=== PATIENT | male | born 1990 | race African-American/Black ===

== ENCOUNTER 2017-05-21 16:08 | Emergency (ER) | payer SELFPAY ==
[2017-05-21] MEDS ORDERED: FAMOTIDINE INJ/PF 20 MG/2 ML SDV IV ONE ×2 (16:12→16:14)
[2017-05-21] MEDS ORDERED: NORMAL SALINE 1000 ML 1,000 ML IV PRN (16:12)
[2017-05-21] MEDS ORDERED: EPINEPHRINE INJ/PF 1 MG/1 ML AMPULE SUBCUT ONE (16:12)
[2017-05-21] MEDS ORDERED: DIPHENHYDRAMINE HCL 50 MG/ML VIAL IV ONE (16:12)
[2017-05-21] MEDS ORDERED: METHYLPREDNISOLONE INJ 125 MG/2 ML SDV IV ONE (16:12)
[2017-05-21] MEDS ORDERED: EPINEPHRINE INJ/PF 1 MG/1 ML AMPULE ONE (16:14)
[2017-05-21] MEDS ORDERED: METHYLPREDNISOLONE INJ 125 MG/2 ML SDV ONE (16:14)
[2017-05-21] MEDS ORDERED: DIPHENHYDRAMINE HCL 50 MG/ML VIAL ONE (16:15)
--- NOTE | 2017-05-21 16:15 | ER Document Report ---
ED Allergic Reaction - General Stated Complaint: ALLERGIC REACTION Time Seen by Provider: 05/21/17 16:12 Mode of Arrival: Ambulatory Information source: Patient TRAVEL OUTSIDE OF THE [place] IN LAST 30 DAYS: No - HPI Patient complains to provider of: bee sting Onset: Just prior to arrival Onset/Duration: Sudden Quality of pain: No pain Skin rash / itching: Diffuse, "Redness", "Hives" Swelling: Face Similar symptoms previously: No Recently seen / treated by doctor: No Notes: Patient is a 27-year-old male who presents to the emergency room complaining of allergic reaction to a bee sting that occurred approximately 1 hour prior to arrival, he was stung just above the left eye, he now has diffuse erythema, rash , itchiness, with facial swelling and sensation of throat swelling, no history of similar symptoms previously, no known allergies otherwise - Related Data Allergies/Adverse Reactions: No Known Allergies Allergy (Unverified 06/28/16 21:03) Past Medical History - General Information source: Patient - Social History Smoking Status: Unknown if Ever Smoked Family History: Reviewed & Not Pertinent Review of Systems - Review of Systems Constitutional: No symptoms reported EENT: No symptoms reported Cardiovascular: No symptoms reported Respiratory: No symptoms reported Gastrointestinal: No symptoms reported Genitourinary: No symptoms reported Male Genitourinary: No symptoms reported Musculoskeletal: No symptoms reported Skin: See HPI Hematologic/Lymphatic: No symptoms reported Neurological/Psychological: No symptoms reported -: Yes All other systems reviewed and negative Physical Exam - Vital signs Vitals: Resp Pulse Ox 22 H 96 05/21/17 16:16 05/21/17 16:16 Interpretation: Normal - General General appearance: Appears well, Alert - HEENT Head: Normocephalic, Atraumatic, Other - Mild facial swelling with erythema Eyes: Normal Conjunctiva: Normal Cornea: Normal Eyelashes: Normal Pupils: PERRL Pharynx: Erythema, Uvular edema - Mild uvula edema with erythema. No: Potential airway comprom. - Respiratory Respiratory status: No respiratory distress Chest status: Nontender Breath sounds: Normal Chest palpation: Normal - Cardiovascular Rhythm: Regular Heart sounds: Normal auscultation Murmur: No - Abdominal Inspection: Normal Distension: No distension Bowel sounds: Normal Tenderness: Nontender Organomegaly: No organomegaly - Back Back: Normal, Nontender - Extremities General upper extremity: Normal inspection, Nontender, Normal color, Normal ROM , Normal temperature General lower extremity: Normal inspection, Nontender, Normal color, Normal ROM , Normal temperature, Normal weight bearing. No: Tracy's sign - Neurological Neuro grossly intact: Yes Cognition: Normal Orientation: AAOx4 Nahma Coma Scale Eye Opening: Spontaneous Sugey Coma Scale Verbal: Oriented Nahma Coma Scale Motor: Obeys Commands Sugey Coma Scale Total: 15 Speech: Normal Motor strength normal: LUE, RUE, LLE, RLE Sensory: Normal - Psychological Associated symptoms: Normal affect, Normal mood - Skin Skin Temperature: Warm Skin Moisture: Dry Skin Color: Normal Location of irregularity: Generalized - Urticarial rash Course - Re-evaluation Re-evalutation: 05/21/17 16:33 Patient resting comfortably with stable vital signs, no airway compromise, he is no longer itching himself everywhere, we will continue to monitor for improvement and resolution of symptoms 05/21/17 18:49 Symptoms continue to improve, he continues to have mild upper eyelid swelling, however airways patent, lungs are clear to auscultation, urticarial rash has resolved, he will be discharged with several prescriptions as well as one for EpiPen which she was advised to carry at all times - Vital Signs Vital signs: Temp Pulse Resp BP Pulse Ox 20 148/104 H 98 05/21/17 17:01 05/21/17 17:01 05/21/17 17:01 Discharge - Discharge Clinical Impression: Acute allergic reaction Qualifiers: Encounter type: initial encounter Qualified Code(s): T78.40XA - Allergy, unspecified, initial encounter Bee sting reaction Qualifiers: Encounter type: initial encounter Injury intent: accidental or unintentional Qualified Code(s): T63.441A - Toxic effect of venom of bees, accidental ( unintentional), initial encounter Condition: Stable Disposition: HOME, SELF-CARE Instructions: Acute Allergic Reaction ([facility]), Insect Sting ([facility]) Additional Instructions: Follow up with your primary care provider in one to 2 days. Return to the emergency room immediately if symptoms worsen or any additional concerns. Carry an EpiPen with you at all times, use as needed for acute allergic reaction similar to today. Prescriptions: Diphenhydramine HCl [Benadryl 25 Mg Capsule] 25 mg PO Q6 #30 capsule Epinephrine [Epipen 2-Kyle] 0.3 mg IJ ONCE PRN #1 unit PRN Reason: Famotidine [Pepcid 20 mg Tablet] 20 mg PO BID #12 tablet Prednisone 40 mg PO DAILY #8 tablet
[2017-05-21 19:35] VITALS: BP 139/100
--- NOTE | 2017-05-21 22:20 | EKG REPORT ---
SEVERITY:- ABNORMAL ECG - SINUS RHYTHM CONSIDER LEFT VENTRICULAR HYPERTROPHY BORDERLINE PROLONGED QT INTERVAL : Confirmed by: Schuyler Naik 21-May-2017 22:20:02
== END 2017-05-21 19:20 | disposition home or self-care (01) ==
LOC: ER 16:08
DX: T63.441A Toxic effect of venom of bees, accidental (unintentional), initial encounter (principal); L50.0 Allergic urticaria; R22.9 Localized swelling, mass and lump, unspecified; X58.XXXA Exposure to other specified factors, initial encounter
CPT/HCPCS: 99283; 96372; 96361; 96374; 96375; J1200; J0171; J2930; J7030; S0028; 93005; 93010

== ENCOUNTER 2017-06-10 19:03 | Emergency (ER) | payer SELFPAY ==
[2017-06-10] MEDS ORDERED: ONDANSETRON HCL INJ/PF 4 MG/2 ML SDV IV ONE (19:41)
[2017-06-10] MEDS ORDERED: NORMAL SALINE 1000 ML 1,000 ML IV ONE (19:41)
--- NOTE | 2017-06-10 19:46 | ER Document Report ---
ED Medical Screen (RME) - General TRAVEL OUTSIDE OF THE [place] IN LAST 30 DAYS: No <ARNAUD ARREOLA - Last Filed: 06/10/17 19:40> <CLAUDIA RENE - Last Filed: 06/10/17 21:23> - General Chief Complaint: Nausea/Vomiting Stated Complaint: VOMITING Notes: Patient is a 27 year old male presenting to the ED for vomiting, body aches and cramps. Patient denies any abdominal pain. 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 Patient states his fingers and toes are cramping/locking up. Patient has no known allergies. Patient also ate a chicken biscuit that was left in his vehicle all day in the heat. (ARNAUD ARREOLA) - Related Data Allergies/Adverse Reactions: No Known Allergies Allergy (Verified 06/10/17 19:08) Past Medical History - Social History Cigarette use (# per day): No Chew tobacco use (# tins/day): No Frequency of alcohol use: Occasional Drug Abuse: None Renal/ Medical History: Denies: Hx Peritoneal Dialysis <ARNAUD ARREOLA - Last Filed: 06/10/17 19:40> Physical Exam <ARNAUD ARREOLA - Last Filed: 06/10/17 19:40> <CLAUDIA RENE - Last Filed: 06/10/17 21:23> - Vital signs Vitals: Temp Pulse Resp BP Pulse Ox 98.0 F 101 H 20 136/81 H 95 06/10/17 19:09 06/10/17 19:09 06/10/17 19:09 06/10/17 19:09 06/10/17 19:09 - Notes Notes: GENERAL: Alert, interacts well. No acute distress. LUNGS: Clear to auscultation bilaterally, no wheezes, rales, or rhonchi. No respiratory distress. HEART: Regular rate and rhythm. No murmurs, gallops, or rubs. ABDOMEN: Soft, non-tender. Non-distended. Bowel sounds present in all 4 quadrants. (ARNAUD ARREOLA) Course - Laboratory Result Diagrams: 06/10/17 19:55 06/10/17 19:55 <CLAUDIA RENE - Last Filed: 06/10/17 21:23> - Vital Signs Vital signs: Temp Pulse Resp BP Pulse Ox 98.0 F 101 H 20 136/81 H 95 06/10/17 19:09 06/10/17 19:09 06/10/17 19:09 06/10/17 19:09 06/10/17 19:09 - Laboratory Laboratory results interpreted by me: 06/10/17 06/10/17 19:55 19:55 RBC 5.82 H Hgb 17.6 H Hct 52.1 H Seg Neutrophils % 80.0 H Lymphocytes % 11.7 L Chloride 90 L Anion Gap 25 H BUN 49 H Creatinine 3.74 H Est GFR ( Amer) 23 L Est GFR (Non-Af Amer) 19 L Glucose 117 H Calcium 10.7 H Direct Bilirubin 0.5 H Total Protein 11.1 H Albumin 5.9 H Scribe Documentation - Scribe Written by Scribe:: Louann Gray 06/10/17 1940 acting as scribe for :: Pb <ARNAUD ARREOLA - Last Filed: 06/10/17 19:40>
[2017-06-10 20:20] LABS: ABSOLUTE BASOPHILS # (AUTO) 0.1 10^3/uL (0.0-0.2); ABSOLUTE LYMPHOCYTES (AUTO) 1.1 10^3/uL (0.5-4.7); ABSOLUTE MONOCYTES (AUTO) 0.7 10^3/uL (0.1-1.4); ABSOLUTE NEUT (AUTO) 7.6 10^3/uL (1.7-8.2); BASOPHILS % (AUTO) 0.9 % (0-2); EOSINOPHILS % (AUTO) 0.2 % (0-6); HEMATOCRIT 52.1 % (37.9-51.0); HEMOGLOBIN 17.6 g/dL (13.5-17.0); HGB HCT DIFFERENCE 0.7; LYMPHOCYTES % (AUTO) 11.7 % (13-45); MEAN CORPUSCULAR HEMOGLOBIN 30.2 pg (27.0-33.4); MEAN CORPUSCULAR HGB CONC 33.7 g/dL (32.0-36.0); MEAN CORPUSCULAR VOLUME 90 fl (80-97); MONOCYTES % (AUTO) 7.2 % (3-13); RED BLOOD COUNT 5.82 10^6/uL (4.35-5.55); WHITE BLOOD COUNT 9.5 10^3/uL (4.0-10.5)
[2017-06-10 20:35] LABS: ALANINE AMINOTRANSFERASE 33 U/L (21-72); ALBUMIN 5.9 g/dL (3.5-5.0); ALKALINE PHOSPHATASE 112 U/L (38-126); ASPARTATE AMINO TRANSFERASE 29 U/L (17-59); BILIRUBIN,DIRECT 0.5 mg/dL (0.0-0.4); BILIRUBIN,TOTAL 0.7 mg/dL (0.2-1.3); BLOOD UREA NITROGEN 49 mg/dL (7-20); CALCIUM 10.7 mg/dL (8.4-10.2); CREATININE RESULT 3.74 mg/dL (0.52-1.25); GLUCOSE 117 mg/dL (75-110); LIPASE 38.7 U/L (23-300); MAGNESIUM 2.3 mg/dL (1.6-2.3)
[2017-06-10 20:44] LABS: CARBON DIOXIDE 27 mmol/L (22-30); CHLORIDE 90 mmol/L (98-107); POTASSIUM 4.5 mmol/L (3.6-5.0); SODIUM 142.1 mmol/L (137-145)
[2017-06-10 20:45] LABS: ANION GAP 25 (5-19); TOTAL PROTEIN 11.1 g/dL (6.3-8.2)
[2017-06-10 22:35] LABS: APPEARANCE,URINE CLOUDY; BILIRUBIN,URINE NEGATIVE (NEGATIVE); CALCIUM OXALATE CRYSTALS,URINE FEW /HPF; GLUCOSE, URINE NEGATIVE (NEGATIVE); KETONES,URINE NEGATIVE (NEGATIVE); LEUKOCYTE ESTERASE,URINE NEGATIVE (NEGATIVE); NITRITE,URINE NEGATIVE (NEGATIVE); PROTEIN,URINE 30 mg/dL (NEGATIVE); URINE SPECIFIC GRAVITY 1.018; UROBILINOGEN,URINE NEGATIVE mg/dL (<2.0)
--- NOTE | 2017-06-10 22:46 | ER Document Report ---
ED General - General Chief Complaint: Nausea/Vomiting Stated Complaint: VOMITING Time Seen by Provider: 06/10/17 19:41 TRAVEL OUTSIDE OF THE [place] IN LAST 30 DAYS: No - HPI Notes: 27-year-old male presents with the following RME chief complaint: "Patient is a 27 year old male presenting to the ED for vomiting, body aches and cramps. Patient denies any abdominal pain. 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 Patient states his fingers and toes are cramping/locking up. Patient has no known allergies. Patient also ate a chicken biscuit that was left in his vehicle all day in the heat." Patient confirms this essentially. Of note he has also been drinking a lot of sweet tea the last 2 days. He is having persisting vomiting today after getting out in the heat. 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 Denies any specific pain but the muscle cramps have been severe. Denies hematuria or dysuria. Denies a history of sickle cell, diabetes, hypertension or prior renal problems. - Related Data Allergies/Adverse Reactions: No Known Allergies Allergy (Verified 06/11/17 01:08) Past Medical History - General Information source: Patient - Social History Smoking Status: Never Smoker Cigarette use (# per day): No Chew tobacco use (# tins/day): No Frequency of alcohol use: Occasional Drug Abuse: None Family History: Reviewed & Not Pertinent Patient has suicidal ideation: No Patient has homicidal ideation: No - Past Medical History Cardiac Medical History: Reports: None Endocrine Medical History: Reports: None Renal/ Medical History: Reports: None. Denies: Hx Peritoneal Dialysis Surgical Hx: Negative - Immunizations Hx Diphtheria, Pertussis, Tetanus Vaccination: Yes Review of Systems - Review of Systems -: Yes All other systems reviewed and negative Physical Exam - Vital signs Vitals: Temp Pulse Resp BP Pulse Ox 98.0 F 101 H 20 136/81 H 95 06/10/17 19:09 06/10/17 19:09 06/10/17 19:09 06/10/17 19:09 06/10/17 19:09 Interpretation: Hypertensive, Tachycardic - Notes Notes: GENERAL: VS as per nursing doc. Well-appearing, well-nourished and in no acute distress. HEAD: Atraumatic, normocephalic. EYES: Pupils equal round and reactive to light, extraocular movements intact, sclera anicteric, no conjunctival injection or discharge. ENT: Nares patent, oropharynx clear without exudates, slightly dry mucous membranes. NECK: Normal range of motion, supple without lymphadenopathy. LUNGS: Breath sounds clear to auscultation bilaterally and equal. No wheezes rales or rhonchi. HEART: Regular rate and rhythm without murmurs. ABDOMEN: Soft, non-tender, normoactive bowel sounds. No guarding, no rebound. No masses appreciated. No Roxton sign. BACK: No CVA tenderness. EXTREMITIES: Normal range of motion, no calf tenderness, no edema. No abnormally firm muscles noted NEUROLOGICAL: Cranial nerves grossly intact. Normal speech. Normal sensory and motor exams. No gross cerebellar abnormalities. PSYCH: Normal mood, normal affect. SKIN: Warm, dry, normal turgor, no lesions noted. Course - Re-evaluation Re-evalutation: 06/10/17 23:05 Patient appears to have a fairly significant acute kidney injury with his elevated creatinine/GFR of 23. We do not have a baseline upon review of records. Most of his symptoms seem to probably be more related to hypovolemia/ heat cramps and heat exhaustion. He is improved after 1 L. Attempting to improve his kidney function better we will further bolus him. 06/11/17 02:04 Check of the patient's labs after 3 L of fluid showed significant improvement. He obviously has had an acute kidney injury that we hope he will completely recover from. He did not want admission which seems reasonable as long as he gets a kidney rechecked before he is back out in the heat or in any situation he could get dehydrated. We discussed a renal diet, significant hydration and he will return here on Tuesday for a BUN/creatinine/recheck of kidney function by Tuesday. He understands this is critical so that he does not get sicker or lose kidney function permanently. In the meantime he understands strict return to ER warning signs. - Vital Signs Vital signs: Temp Pulse Resp BP Pulse Ox 98.4 F 77 14 135/83 H 96 06/10/17 23:25 06/10/17 23:25 06/10/17 23:25 06/10/17 23:25 06/10/17 23:25 - Laboratory Result Diagrams: 06/10/17 19:55 06/11/17 01:27 Laboratory results interpreted by me: 06/10/17 06/10/17 06/10/17 19:55 19:55 19:55 RBC 5.82 H Hgb 17.6 H Hct 52.1 H Seg Neutrophils % 80.0 H Lymphocytes % 11.7 L Chloride 90 L Anion Gap 25 H BUN 49 H Creatinine 3.74 H Est GFR ( Amer) 23 L Est GFR (Non-Af Amer) 19 L Glucose 117 H Calcium 10.7 H Direct Bilirubin 0.5 H Creatine Kinase 303 H Total Protein 11.1 H Albumin 5.9 H Urine Protein 06/10/17 06/11/17 22:00 01:27 RBC Hgb Hct Seg Neutrophils % Lymphocytes % Chloride Anion Gap BUN 41 H Creatinine 2.14 H Est GFR ( Amer) 44 L Est GFR (Non-Af Amer) 37 L Glucose Calcium Direct Bilirubin Creatine Kinase Total Protein Albumin Urine Protein 30 H 06/10/17 23:04 Discharge - Discharge Clinical Impression: Dehydration, Acute kidney injury, Heat cramps Condition: Good Disposition: HOME, SELF-CARE Additional Instructions: As discussed, it is critical you get a recheck of your renal function by the next time you are out in the heat, Tuesday as discussed. Ensure you stay hydrated as discussed with a low protein diet, large amounts of non-caffeinated and nonalcoholic fluids. Please return immediately if you are worsening at all. Forms: Return to Work Referrals: [facility] [Provider Group] - Follow up in 1 week
[2017-06-10] MEDS: NORMAL SALINE 1000 ML 1,000 ML IV PRN ×2 (23:20→23:22)
[2017-06-11 01:49] LABS: ANION GAP 11 (5-19); BLOOD UREA NITROGEN 41 mg/dL (7-20); CALCIUM 8.4 mg/dL (8.4-10.2); CARBON DIOXIDE 25 mmol/L (22-30); CHLORIDE 104 mmol/L (98-107); CREATININE RESULT 2.14 mg/dL (0.52-1.25); GLUCOSE 96 mg/dL (75-110); POTASSIUM 4.4 mmol/L (3.6-5.0)
[2017-06-11 02:42] VITALS: BP 128/61
== END 2017-06-11 02:50 | disposition home or self-care (01) ==
LOC: ER 19:03
DX: E86.0 Dehydration (principal); T67.2XXA Heat cramp, initial encounter; R11.2 Nausea with vomiting, unspecified; M79.1 Myalgia; X30.XXXA Exposure to excessive natural heat, initial encounter; Y93.H9 Activity, other involving exterior property and land maintenance, building and construction; N17.9 Acute kidney failure, unspecified; Y99.0 Civilian activity done for income or pay
CPT/HCPCS: 99284; 96361; 96374; 36415; 82550; 83690; 83735; 85025; 80048; 80053; 81001; J2405; J7030

== ENCOUNTER 2018-03-30 18:32 | Emergency (ER) | payer SELFPAY ==
[2018-03-30] MEDS ORDERED: ACETAMINOPHEN 325 MG TABLET PO ONE (18:54)
--- NOTE | 2018-03-30 19:17 | RADIOLOGY REPORT (SQ) ---
EXAM DESCRIPTION: CHEST 2 VIEWS COMPLETED DATE/TIME: 03/30/2018 7:09 pm REASON FOR STUDY: cough, fever COMPARISON: None. EXAM PARAMETERS: NUMBER OF VIEWS: two views TECHNIQUE: Digital Frontal and Lateral radiographic views of the chest acquired. RADIATION DOSE: NA LIMITATIONS: none FINDINGS: LUNGS AND PLEURA: No opacities, masses or pneumothorax. No pleural effusion. MEDIASTINUM AND HILAR STRUCTURES: No masses or contour abnormalities. HEART AND VASCULAR STRUCTURES: Heart normal size. No evidence for failure. BONES: No acute findings. HARDWARE: None in the chest. OTHER: No other significant finding. IMPRESSION: NO ACUTE RADIOGRAPHIC FINDING IN THE CHEST. TECHNICAL DOCUMENTATION: JOB ID: [id number] [employer]- All Rights Reserved Reading location - IP/workstation name: [email or web address]
--- NOTE | 2018-03-30 19:35 | ER Document Report ---
ED Fever - General Chief Complaint: Fever Stated Complaint: FEVER, CHEST PAIN Time Seen by Provider: 03/30/18 18:57 Mode of Arrival: Ambulatory Information source: Patient TRAVEL OUTSIDE OF THE [place] IN LAST 30 DAYS: No - HPI Patient complains to provider of: fever Onset: Yesterday Notes: Patient is here with complaints of fever and cough. Patient states that he started to run a fever and cough yesterday. Has complaints of mild body aches. He also complains some generalized weakness. He denies any shortness of breath. He denies any chest pain other than when he is coughed a few times. No ear pain. No sore throat. No abdominal pain. No nausea, vomiting, diarrhea. No dysuria or hematuria. No rash. No known sick contacts. He has no chronic medical conditions and takes no daily medications. He denies any significant headache or neck stiffness. No blurred or loss vision. No numbness , tingling, weakness. No other complaints at this time. - Related Data Allergies/Adverse Reactions: No Known Allergies Allergy (Verified 06/11/17 01:08) Past Medical History - Social History Smoking Status: Unknown if Ever Smoked Family History: Reviewed & Not Pertinent Patient has suicidal ideation: No Patient has homicidal ideation: No Renal/ Medical History: Denies: Hx Peritoneal Dialysis - Immunizations Hx Diphtheria, Pertussis, Tetanus Vaccination: Yes Review of Systems - Review of Systems -: Yes All other systems reviewed and negative Physical Exam - Vital signs Vitals: Temp Pulse Resp BP Pulse Ox 102.8 F H 95 16 156/86 H 95 03/30/18 18:51 03/30/18 18:51 03/30/18 18:51 03/30/18 18:51 03/30/18 18:51 - Notes Notes: GENERAL: alert, cooperative, nontoxic, no distress. HEAD: normocephalic, atraumatic EYES: conjunctiva pink without discharge, no external redness or swelling. EARS: no external swelling, no external redness, no mastoid redness, swelling, tenderness. Ear canals are clear without swelling or drainage. TMs pearly carranza , no redness, no bulging, normal landmarks, no perforation. NOSE: atraumatic, no external swelling. clear rhinorrhea noted. MOUTH/THROAT: mucous membranes moist and pink, posterior pharynx without erythema, swelling, exudate. No trismus or drooling. NECK: soft, supple, full range of motion, no meningismus. CHEST: no distress, lungs clear and equal throughout. No wheezing, rales, rhonchi. CARDIAC: regular rate and rhythm, no murmur, normal capillary refill, normal pulses. No peripheral edema noted. BACK: full range of motion, no CVA tenderness. EXTREMITIES: full range of motion of all extremities. No redness, no swelling. NEURO: alert and oriented A&O3, no focal deficits, full range of motion of all extremities. PYSCH: appropriate mood, affect. Patient is cooperative. SKIN: pink, warm, dry, no rash. Course - Re-evaluation Re-evalutation: 03/30/18 19:32 Patient is nontoxic appearing with stable vitals. He is noted to be febrile when he initially arrives, but no tachycardia, hypotension or hypoxia. Patient is a healthy 28-year-old male with no chronic medical conditions. Said fever and cough since yesterday. He has a completely benign exam. Chest x-ray shows no acute abnormalities. It is possible that the patient could have influenza as we are still seeing a small group of people with influenza P. I did offer to test him for influenza and even potentially treat him with Tamiflu prophylactically. We discussed the risks and benefits of all this, the patient declined. He states that he would be fine with symptomatic treatment and to be discharged home at this time. Again the patient is nontoxic appearing and believe this is reasonable at this time. He will be discharged home with a prescription for Vicodin and Naprosyn. He is instructed to take Tylenol as needed. Drink plenty fluids. Follow-up if he has not better in the next 3-5 days, follow-up sooner for worsening symptoms, difficulty breathing, abdominal pain, rash, neck stiffness, severe headache, or for any further concerns. The patient is noted to have elevated blood pressure during today's emergency department visit. The patient was informed of this finding. The patient was instructed that this may be related to pre-hypertension and requires further evaluation with a primary care provider. The patient has no hypertensive symptoms at this time. The patient's emergency department workup and current diagnosis were explained to the patient and or family. Follow-up instructions were provided. Medications if prescribed were discussed. Instructions for when to return to the emergency department including specific worrisome symptoms were discussed with the patient and/or family. - Vital Signs Vital signs: Temp Pulse Resp BP Pulse Ox 102.8 F H 95 16 156/86 H 95 03/30/18 18:51 03/30/18 18:51 03/30/18 18:51 03/30/18 18:51 03/30/18 18:51 - Diagnostic Test Radiology reviewed: Image reviewed, Reports reviewed - Negative chest x-ray Discharge - Discharge Clinical Impression: Viral syndrome URI (upper respiratory infection) Qualifiers: URI type: unspecified viral URI Qualified Code(s): J06.9 - Acute upper respiratory infection, unspecified Fever Qualifiers: Fever type: unspecified Qualified Code(s): R50.9 - Fever, unspecified Condition: Stable Disposition: HOME, SELF-CARE Instructions: Acetaminophen, Fever ([facility]), Upper Respiratory Illness ([facility]), Viral Syndrome ([facility]) Additional Instructions: Take medications as prescribed. You may also take Tylenol as needed for pain or fever. Drink plenty fluids. Do not return to work until he has not had a fever for 24 hours without Tylenol or Motrin. Follow-up if you have not improved within the next 3-5 days, follow-up sooner for worsening symptoms, difficulty breathing, persistent vomiting, abdominal pain, severe headache, neck stiffness, or for any further concerns. Your blood pressure was elevated during today's visit. Have this rechecked with your doctor. Prescriptions: Hydrocodone Bit/Homatropine [Hycodan Syrup 5-1.5 mg/5 ml Ud Cup] 5 ml PO Q4HP PRN #120 ml PRN Reason: Naproxen [Naprosyn] 500 mg PO BID #20 tablet Forms: Elevated Blood Pressure, Smoking Cessation Education Referrals: [facility] [Provider Group] - Follow up as needed
[2018-03-30 19:47] VITALS: BP 140/85
== END 2018-03-30 19:33 | disposition home or self-care (01) ==
LOC: ER 18:32
DX: J06.9 Acute upper respiratory infection, unspecified (principal); B34.9 Viral infection, unspecified; R50.9 Fever, unspecified; R07.9 Chest pain, unspecified
CPT/HCPCS: 71046; 99284

== ENCOUNTER 2018-10-06 17:10 | Emergency (ER) | payer OTHER ==
[2018-10-06 17:27] VITALS: BP 168/99
[2018-10-06] MEDS ORDERED: ACETAMINOPHEN 325 MG TABLET PO ONE (19:38)
[2018-10-06] MEDS ORDERED: DIPH/PERTUSS(ACELL)/TETANUS VAC/PF 0.5 ML SYR (>=10YO) IM ONE (19:39)
[2018-10-06] MEDS ORDERED: LIDOCAINE 1%/EPINEPHRINE INJ 20 ML VIAL INJ ONE (19:47)
--- NOTE | 2018-10-06 19:53 | ER Document Report ---
ED General - General Chief Complaint: Laceration Stated Complaint: WORK INJ/ARM LACERATION Time Seen by Provider: 10/06/18 19:38 TRAVEL OUTSIDE OF THE [place] 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 He states he was holding a pig and a coworker went to cut the pig with a razor blade and it sliced him. Patient denies any excessive bleeding any spurting blood, any lightheadedness, dizziness, or nausea. Patient does not know when his last tetanus booster was. - Related Data Allergies/Adverse Reactions: No Known Allergies Allergy (Verified 06/11/17 01:08) Past Medical History - General Information source: Patient - Social History Smoking Status: Never Smoker Family History: Reviewed & Not Pertinent Renal/ Medical History: Denies: Hx Peritoneal Dialysis - Immunizations Hx Diphtheria, Pertussis, Tetanus Vaccination: Yes Review of Systems - Review of Systems Constitutional: No symptoms reported EENT: No symptoms reported Cardiovascular: No symptoms reported Respiratory: No symptoms reported Gastrointestinal: No symptoms reported Genitourinary: No symptoms reported Male Genitourinary: No symptoms reported Musculoskeletal: No symptoms reported Skin: See HPI Hematologic/Lymphatic: No symptoms reported Neurological/Psychological: No symptoms reported Physical Exam - Vital signs Vitals: Temp Pulse Resp BP Pulse Ox 98.4 F 50 L 16 168/99 H 99 10/06/18 17:25 10/06/18 17:25 10/06/18 17:25 10/06/18 17:25 10/06/18 17:25 Interpretation: Normal - General General appearance: Appears well, Alert - HEENT Head: Normocephalic, Atraumatic Eyes: Normal Pupils: PERRL - Respiratory Respiratory status: No respiratory distress Chest status: Nontender Breath sounds: Normal Chest palpation: Normal - Cardiovascular Rhythm: Regular Heart sounds: Normal auscultation Murmur: No - Abdominal Inspection: Normal Distension: No distension Bowel sounds: Normal Tenderness: Nontender Organomegaly: No organomegaly - Back Back: Normal, Nontender - Extremities General upper extremity: Normal inspection, Nontender, Normal color, Normal ROM , Normal temperature General lower extremity: Normal inspection, Nontender, Normal color, Normal ROM , Normal temperature, Normal weight bearing. No: Tracy's sign - Neurological Neuro grossly intact: Yes Cognition: Normal Orientation: AAOx4 Raeford Coma Scale Eye Opening: Spontaneous Sugey Coma Scale Verbal: Oriented Raeford Coma Scale Motor: Obeys Commands Raeford Coma Scale Total: 15 Speech: Normal Motor strength normal: LUE, RUE, LLE, RLE Sensory: Normal Notes: Neurovascular exam performed. Radial, medial, ulnar nerves all intact. Sensation to light touch normal. No evidence of any tendon injury. Blurred wound after anesthetization no foreign body observed. - Psychological Associated symptoms: Normal affect, Normal mood - Skin Skin Temperature: Warm Skin Moisture: Dry Skin Color: Normal Skin irregularity: Laceration Location of irregularity: Extremities Character of irregularity: Linear Notes: Transverse linear laceration on dorsal aspect right forearm. Approximately 6 cm in length Course - Re-evaluation Re-evalutation: 10/06/18 21:23 The wound is transverse approximately 8 cm on the dorsal aspect of the right forearm. The wound was copiously irrigated with normal saline and Hibiclens. The wound was explored for foreign bodies and none were found. The wound was prepped and draped in the normal sterile fashion. The wound was anesthetized using cocaine 1% with epinephrine. The edges were reapproximated using 4-0 Prolene. Bleeding was well controlled and the patient tolerated the procedure well. Patient received his DTaP booster - Vital Signs Vital signs: Temp Pulse Resp BP Pulse Ox 98.4 F 50 L 16 168/99 H 99 10/06/18 17:25 10/06/18 17:25 10/06/18 17:25 10/06/18 17:25 10/06/18 17:25 Procedures - Laceration/Wound Repair Right Dorsal Arm Time completed: 01:00 Wound length (cm): 8 Wound's Depth, Shape: Superficial, Linear Laceration pre-procedure: Sterile PPE donned, Chloraprep applied, Sterile drapes applied Anesthetic type: 1% Lidocaine w/epi Wound explored: Clean Irrigated w/ Saline (mLs): 500 Wound Debrided: Minimal Wound Repaired With: Sutures Suture Size/Type: 4:0, Prolene Number of Sutures: 9 - Patient tolerated procedure well. Discharge - Discharge Clinical Impression: Laceration Condition: Good Disposition: HOME, SELF-CARE Instructions: Antibiotic Ointment Protection ([facility]), Laceration Care ([facility]), Soap Cleansing ([facility]), Tetanus Immunization Given ([facility]) Additional Instructions: Please return to your primary doctor, the ED, or an urgent care in 7 days for suture removal. Return immediately if you develop spreading redness around the wound, pus from the wound, worsening pain, or a fever of >101. Keep the area clean and dry. Wash gently with soap and water twice daily and cover with antibiotic ointment. Forms: Return to Work
== END 2018-10-06 21:37 | disposition home or self-care (01) ==
LOC: ER 17:10
DX: S51.811A Laceration without foreign body of right forearm, initial encounter (principal); W26.8XXA Contact with other sharp object(s), not elsewhere classified, initial encounter; Y93.89 Activity, other specified; Y92.79 Other farm location as the place of occurrence of the external cause; Y99.0 Civilian activity done for income or pay; Z23 Encounter for immunization
CPT/HCPCS: 99282; 90471; 90715; 12004; J3490

== ENCOUNTER 2018-10-16 12:37 | Emergency (ER) | payer SELFPAY | END 2018-10-16 13:00 | disposition left against medical advice (07) | LOC: ER 12:37 | DX: Z53.21 Procedure and treatment not carried out due to patient leaving prior to being seen by health care provider (principal) ==

== ENCOUNTER 2018-10-16 18:36 | Emergency (ER) | payer OTHER, BC ==
[2018-10-16 19:04] VITALS: BP 155/99
--- NOTE | 2018-10-16 19:28 | ER Document Report ---
HPI - HPI Time Seen by Provider: 10/16/18 19:19 Pain Level: Denies Context: Patient is a 28-year-old male who is at the emergency department for suture removal on his right forearm. They were placed 1 week ago. There are 9 stitches. Denies fever, redness, pain. - CONSTITUTIONAL Constitutional: DENIES: Fever Past Medical History - General Information source: Patient - Social History Smoking Status: Current Every Day Smoker Chew tobacco use (# tins/day): No Frequency of alcohol use: None Drug Abuse: None Family History: Reviewed & Not Pertinent Patient has suicidal ideation: No Patient has homicidal ideation: No Renal/ Medical History: Denies: Hx Peritoneal Dialysis - Immunizations Hx Diphtheria, Pertussis, Tetanus Vaccination: Yes Vertical Provider Document - INFECTION CONTROL TRAVEL OUTSIDE OF THE [place] IN LAST 30 DAYS: No - HEENT HEENT: Atraumatic - NECK Neck: Normal Inspection - RESPIRATORY Respiratory: No Respiratory Distress - CARDIOVASCULAR Cardiovascular: Regular Rate - NEURO Level of Consciousness: Awake, Alert - Sutures noted to right forearm. - DERM Integumentary: Warm, Dry Course - Re-evaluation Re-evalutation: Sutures were removed with no complications. Discharge instructions were given. Patient verbalized understanding. - Vital Signs Vital signs: Temp Pulse Resp BP Pulse Ox 97.9 F 57 L 16 155/99 H 97 10/16/18 19:03 10/16/18 19:03 10/16/18 19:03 10/16/18 19:03 10/16/18 19:03 Discharge - Discharge Clinical Impression: Visit for suture removal Condition: Stable Disposition: HOME, SELF-CARE Additional Instructions: You are seen today for suture removal. Your wound appears to be healed. If you develop a fever, have redness to the area, or have any symptoms that are worrisome to you, please return to the emergency department. Forms: Return to Work
== END 2018-10-16 19:32 | disposition home or self-care (01) ==
LOC: ER 18:36
DX: Z48.02 Encounter for removal of sutures (principal); F17.200 Nicotine dependence, unspecified, uncomplicated

== ENCOUNTER 2020-11-07 15:02 | Emergency (ER) | payer SELFPAY ==
[2020-11-07] MEDS ORDERED: NORMAL SALINE 1000 ML 1,000 ML IV ONE (16:43)
[2020-11-07] MEDS ORDERED: ACETAMINOPHEN 325 MG TABLET PO ONE (16:44)
[2020-11-07 17:25] LABS: ABSOLUTE LYMPHOCYTES (AUTO) 0.5 10^3/uL (0.5-4.7); ABSOLUTE MONOCYTES (AUTO) 0.5 10^3/uL (0.1-1.4); ABSOLUTE NEUT (AUTO) 4.4 10^3/uL (1.7-8.2); BASOPHILS % (AUTO) 0.7 % (0-2); EOSINOPHILS % (AUTO) 0.1 % (0-6); HEMATOCRIT 44.7 % (37.9-51.0); HEMOGLOBIN 15.2 g/dL (13.5-17.0); LYMPHOCYTES % (AUTO) 9.5 % (13-45); MEAN CORPUSCULAR HEMOGLOBIN 29.9 pg (27.0-33.4); MEAN CORPUSCULAR HGB CONC 33.9 g/dL (32.0-36.0); MEAN CORPUSCULAR VOLUME 88 fl (80-97); MONOCYTES % (AUTO) 9.4 % (3-13); PLATELET COUNT 161 10^3/uL (150-450); RED BLOOD COUNT 5.06 10^6/uL (4.35-5.55); SEGMENTED NEUTROPHILS % (AUTO) 80.3 % (42-78); TOTAL CELLS COUNTED % (AUTO) 100 %; WHITE BLOOD COUNT 5.5 10^3/uL (4.0-10.5)
[2020-11-07 17:32] LABS: A TYPE INFLUENZA AG NEGATIVE (NEGATIVE); B INFLUENZA AG NEGATIVE (NEGATIVE)
--- NOTE | 2020-11-07 17:47 | RADIOLOGY REPORT (SQ) ---
EXAM DESCRIPTION: CHEST SINGLE VIEW IMAGES COMPLETED DATE/TIME: 11/07/2020 5:15 pm REASON FOR STUDY: + Cough COMPARISON: 03/30/2018 EXAM PARAMETERS: NUMBER OF VIEWS: One view. TECHNIQUE: Single frontal radiographic view of the chest acquired. RADIATION DOSE: NA LIMITATIONS: None. FINDINGS: LUNGS AND PLEURA: No opacities, masses or pneumothorax. No pleural effusion. MEDIASTINUM AND HILAR STRUCTURES: No masses. Contour normal. HEART AND VASCULAR STRUCTURES: Heart normal in size. Normal vasculature. BONES: No acute findings. HARDWARE: None in the chest. OTHER: No other significant finding. IMPRESSION: NO ACUTE RADIOGRAPHIC FINDING IN THE CHEST. TECHNICAL DOCUMENTATION: JOB ID: [id number] 2010 [employer]- All Rights Reserved Reading location - IP/workstation name: [email or web address]
[2020-11-07 17:51] LABS: ALBUMIN 4.6 g/dL (3.5-5.0); ALKALINE PHOSPHATASE 78 U/L (38-126); ANION GAP 9 (5-19); ASPARTATE AMINO TRANSFERASE 49 U/L (17-59); BILIRUBIN,DIRECT 0.3 mg/dL (0.0-0.4); BILIRUBIN,TOTAL 0.5 mg/dL (0.2-1.3); BLOOD UREA NITROGEN 12 mg/dL (7-20); CALCIUM 9.2 mg/dL (8.4-10.2); CARBON DIOXIDE 29 mmol/L (22-30); CHLORIDE 98 mmol/L (98-107); GLUCOSE 108 mg/dL (75-110); TOTAL PROTEIN 8.9 g/dL (6.3-8.2)
--- NOTE | 2020-11-07 19:15 | ER Document Report ---
ED Respiratory Problem - General Chief Complaint: Cold Symptoms Stated Complaint: WEAKNESS/COUGH/FEVER/RUNNY NOSE Time Seen by Provider: 11/07/20 15:23 Primary Care Provider: MILAGROS ROGERS [Primary Care Provider] - Follow up as needed Mode of Arrival: Ambulatory Information source: Patient Notes: This 30-year-old man presents to the emergency department with a complaint of cough, congestion, drainage with associated chills and sweats. States that his symptoms began 2 days ago but currently are worsening. He is found to have a temperature of 102.7 in the emergency department. Does not take any medications. He denies any known direct contact with coronavirus positive individual. He has a nonproductive cough and denies allergies to medications. TRAVEL OUTSIDE OF THE [place] IN LAST 30 DAYS: No - Related Data Allergies/Adverse Reactions: No Known Allergies Allergy (Verified 06/11/17 01:08) Past Medical History - Social History Smoking Status: Unknown if Ever Smoked Family History: Reviewed & Not Pertinent Renal/ Medical History: Denies: Hx Peritoneal Dialysis - Immunizations Hx Diphtheria, Pertussis, Tetanus Vaccination: Yes Review of Systems - Review of Systems Notes: Constitutional: Positive fever. HENT: See HPI Eyes: Negative for visual changes. Cardiovascular: Negative for chest pain. Respiratory: See HPI Gastrointestinal: Negative for abdominal pain, vomiting or diarrhea. Genitourinary: Negative for dysuria. Musculoskeletal: Negative for back pain. Skin: Negative for rash. Neurological: Negative for headaches, weakness or numbness. 10 point ROS negative except as marked above and in HPI. Physical Exam - Vital signs Vitals: Temp Pulse Resp BP Pulse Ox 102.9 F H 111 H 16 143/92 H 100 11/07/20 15:33 11/07/20 15:33 11/07/20 15:33 11/07/20 15:33 11/07/20 15:33 - Notes Notes: PHYSICAL EXAMINATION: Physical Exam: General: Well-nourished well-developed 30-year-old man in no acute distress HEENT: NC/AT, pupils equal round and reactive to light, MM moist,nares clear, oropharynx clear, airway patent Neck: supple, no adenopathy, no masses. Good range of motion Lungs: clear, no wheezing, no rales no rhonchi CVS: Regular rate and rhythm no murmur gallop or rub Abdomen: Soft, active, nontender, no masses, no hepatosplenomegaly Ext: No edema, clubbing or cyanosis. Neuro: Alert and responsive, moving all 4 extremities on command, cranial nerves intact, no focal findings Skin: Intact no open lesions, no rash PSYCH: Normal mood, normal affect. Course - Re-evaluation Re-evalutation: 11/07/20 19:11 The patient flu test, strep test, and chest x-ray are all negative. A coronavirus test is gathered and the patient has made a person of interest. I explained to the patient that he will need to take Tylenol and/or Motrin for fever control and to increase his fluid intake. He should also self quarantine until he has received the results of the testing. If his symptoms are worsening or if you have other concerns you may return to the emergency department for further evaluation and treatment patient acknowledges understanding of this plan and is ready for discharge. - Vital Signs Vital signs: Temp Pulse Resp BP Pulse Ox 99.4 F 106 H 18 127/88 H 97 11/07/20 18:11 11/07/20 18:11 11/07/20 18:11 11/07/20 18:11 11/07/20 18:11 - Laboratory Results Result Diagrams: 11/07/20 17:05 11/07/20 17:05 Laboratory Results Interpreted: 11/07/20 11/07/20 17:05 17:05 Lymph % (Auto) 9.5 L Seg Neutrophils % 80.3 H Sodium 136.3 L Creatinine 1.26 H ALT 55 H Total Protein 8.9 H 11/07/20 19:12 I have reviewed laboratory data and used this information for the treatment deci sions regarding the patient. Critical Laboratory Results Reviewed: No Critical Results - Radiology Results Radiology Results Interpreted: 11/07/20 19:12 Chest X-Ray 11/07/20 16:41 IMPRESSION: NO ACUTE RADIOGRAPHIC FINDING IN THE CHEST. Critical Radiology Results Reviewed: No Critical Results Discharge - Discharge Clinical Impression: Suspected 2019 novel coronavirus infection Condition: Good Disposition: HOME, SELF-CARE Instructions: COVID-19 Guidance for Persons Under Investigation Additional Instructions: You were seen in the emergency department today with fever and upper respiratory symptoms.Testing for influenza and strep were negative, chest x-ray is clear. Given the pandemic and coronavirus concerns, your were made a person of interest and a swab was collected and will be sent for COVID-19 evaluation. You will need to self quarantine until you get the results. You may use ibuprofen or Tylenol for fever, aches and pains. Please return to the hospital if her sympto ms are worsening or development of shortness of breath. HOME CARE INSTRUCTIONS & INFORMATION: Thank you for choosing us for your medical needs. We hope you're satisfied with the care you received. After you leave, you must properly care for your problem and, at the same time, observe its progress. Any condition can change. Some illnesses can change rapidly over hours or days. If your condition worsens, return to the Emergency Department or see your physician promptly. ABOUT YOUR X-RAYS AND EKG'S: If you had an EKG or X-rays taken, they have been read by the Emergency Physician. The X-rays and EKG's will also be read by a Radiologist or Barrel Straightener within 24 hours. If discrepancies are noted, you will be notified by telephone. Please be certain the ED has a correct telephone number & address where you can be reached. Also, realize that some fractures or abnormalities do not show up on initial X-rays. If your symptoms continue, see your physician. ABOUT YOUR LABORATORY TEST: If you had laboratory tests, the results have been reviewed by the Emergency Physician. Some test results (for example cultures) may not be available for several days. You will be contacted if any test result shows you need additional treatment. Please be certain the ED has a correct telephone number and address where you can be reached. ABOUT YOUR MEDICATIONS: You will receive instructions on how to take your medicine on the prescription label you receive. Additional information may be provided by the Pharmacy. If you have questions afterwards, call the ED for clarification or further instructions. Some prescribed medications may cause drowsiness. Do not perform tasks such as driving a car or operating machinery without consulting your Pharmacist. If you feel you need a refill of pain medication, your condition will need re-evaluation. Please do not call for a refill of any medication. ABOUT YOUR SIGNATURE: Signature of this document acknowledges to followin. Understanding that you received emergency treatment and that you may be released before al medical problems are known or treated. Please be certain the ED has a correct phone number & address where you can be reached. 2. Acknowledgement that you will arrange for follow-up care as recommended. 3. Authorization for the Emergency Physician to provide information to your follow-up Physician in order to maximize your care. AT ANY TIME, IF YOUR SYMPTOMS CHANGE SIGNIFICANTLY OR WORSEN OR YOU DEVELOP NEW SYMPTOMS, RETURN TO THE EMERGENCY DEPARTMENT IMMEDIATELY FOR RE-EVALUATION. OUR GOAL IS TO PROVIDE EXCELLENT MEDICAL CARE! WE HOPE THAT WE HAVE MET YOUR EXPECTATIONS DURING YOUR EMERGENCY DEPARTMENT VISIT AND THAT YOU FEEL YOU HAVE RECEIVED EXCELLENT CARE! Referrals: LOCALMD,NO [Primary Care Provider] - Follow up as needed
[2020-11-07 19:28] VITALS: BP 142/79
== END 2020-11-07 19:30 | disposition home or self-care (01) ==
LOC: ER 15:02
DX: U07.1 COVID-19 (principal); R53.1 Weakness; R50.9 Fever, unspecified
CPT/HCPCS: 99284; 96360; 36415; 87070; 87880; 85025; 87635; 80053; 87804; 71045; J7030; C9803